=== PATIENT | female | born 1940 | race Caucasian/White ===

== ENCOUNTER 2019-07-08 07:23 | Inpatient (IN) | payer OTHER, MEDICAID ==
[~2019-07-08] VITALS: Ht 170.2 cm; Wt 75.7 kg
[2019-07-08 07:25] VITALS: BP 119/73
[2019-07-08] MEDS ORDERED: ASPIRIN EC81 M1 PO (07:34)
[2019-07-08] MEDS ORDERED: ESTRACE0.5 MG PO (07:34)
[2019-07-08] MEDS ORDERED: CALCIUM500 MG PO (07:35)
[2019-07-08] MEDS ORDERED: SIMVASTATIN80 MG PO (07:35)
[2019-07-08 08:15] LABS: ABSOLUTE BASOPHILS 0.1 thou/uL (0.0-0.2); ABSOLUTE LYMPHOCYTES 2.2 thou/uL (0.8-5.3); ABSOLUTE MONOCYTES 1.6 thou/uL (0.0-1.2); ABSOLUTE NEUTROPHILS 9.2 thou/uL (1.6-8.1); BASOPHILS 0.5 %; EOSINOPHILS 0.2 %; HEMOGLOBIN 15.7 gm/dL (12.0-15.0); LYMPHOCYTES 16.5 %; MCH 30.1 pg (26.0-34.0); MCHC 33.5 g/dL (28.0-37.0); MCV 89.9 fL (80.0-100.0); MONOCYTES 12.4 %; MPV 8.3 fl. (7.2-11.1); NUCLEATED RBCS 0 /100WBC; PLATELET COUNT* 310 thou/uL (150-400); POLYS 70.4 %; RBC 5.23 mil/uL (4.20-5.00); RDW-CV 13.7 % (10.5-14.5); WBC 13.1 thou/uL (4.0-11.0)
[2019-07-08 08:23] LABS: CALCIUM 9.3 mg/dL (8.5-10.1); POTASSIUM 3.3 mmol/L (3.5-5.1)
[2019-07-08 08:25] LABS: APTT 27.3 Seconds (25.0-31.3); INR 1.1; PROTIME 10.9 Seconds (9.20-11.50)
[2019-07-08 08:33] LABS: ALBUMIN 3.7 g/dL (3.4-5.0); MAGNESIUM 1.8 mg/dL (1.8-2.4); TOTAL BILIRUBIN 0.3 mg/dL (<0.1-1.0); TOTAL PROTEIN 7.5 g/dL (6.4-8.2)
[2019-07-08 10:58] VITALS: BP 119/61
[2019-07-08 11:15] VITALS: BP 125/61
[2019-07-08] MEDS ORDERED: LISINOPRIL-HCT1 EAC1 PO (12:43)
--- NOTE | 2019-07-08 15:16 | EKG ---
[place] [address] ELECTROCARDIOGRAM REPORT Name: [place] GUERIN Room: [address] ADM IN [facility].#: [id number] Admission: 07/08/19 Attend Phys: Francois England Discharge: Date of : 44 Report #: [id number] THIS REPORT FOR: //name// [facility] ED Test Date: 2019-07-08 Test Time: 08:32:18 Pat Name: KY GUERIN Department: Room: [facility] Gender: F Thread Trimmer: [facility] : 1940 Requested By: Bora Reyna Order Number: [id number] MD: Myke Reyes Measurements Intervals [place] Rate: 60 P: 51 RI: 134 QRS: 41 QRSD: 86 T: 61 QT: 424 QTc: 424 Interpretive Statements Sinus rhythm Borderline T abnormalities, lateral leads No previous ECG available for comparison Electronically Signed On 07-08-2019 15:15:47 UX DEVELOPER by Myke Reyes [email or web address] <ELECTRONICALLY SIGNED> By: Myke Reyes MD, [facility] 07/08/19 1515 1 1 Myke Reyes MD, FAC /EPI
[2019-07-08 18:42] VITALS: BP 124/69
[2019-07-08 20:00] VITALS: BP 127/62
[2019-07-09] VITALS (7 sets, daily range): BP systolic 107–139; BP diastolic 55–67
[2019-07-09 01:09] LABS: URINE BILIRUBIN NEGATIVE (Negative); URINE BLOOD NEGATIVE (Negative); URINE CLARITY CLEAR; URINE COLOR YELLOW; URINE GLUCOSE-RANDOM NEGATIVE (Negative); URINE KETONES NEGATIVE (Negative); URINE LEUKOCYTES NEGATIVE (Negative); URINE NITRITE NEGATIVE (Negative); URINE PROTEIN NEGATIVE (Negative); URINE UROBILINOGEN 0.2 E.U./dl (0.2-1.0)
[2019-07-10] VITALS: BP 135/70
[2019-07-10 04:00] VITALS: BP 140/64
[2019-07-10 04:57] LABS: HEMATOCRIT 43.8 % (37.0-47.0); HEMOGLOBIN 14.6 gm/dL (12.0-15.0); MCH 30.2 pg (26.0-34.0); MCHC 33.3 g/dL (28.0-37.0); MCV 90.5 fL (80.0-100.0); MPV 8.9 fl. (7.2-11.1); RBC 4.84 mil/uL (4.20-5.00); RDW-CV 13.6 % (10.5-14.5); WBC 13.3 thou/uL (4.0-11.0)
[2019-07-10 05:28] LABS: ALBUMIN 3.2 g/dL (3.4-5.0); CALCIUM 9.4 mg/dL (8.5-10.1); MAGNESIUM 1.9 mg/dL (1.8-2.4); TOTAL BILIRUBIN 0.2 mg/dL (<0.1-1.0); TOTAL PROTEIN 6.6 g/dL (6.4-8.2)
[2019-07-10 07:39] VITALS: BP 138/74
[2019-07-10 12:00] VITALS: BP 122/65
[2019-07-10 16:00] VITALS: BP 131/70
[2019-07-10 20:00] VITALS: BP 125/55
[2019-07-11 00:49] VITALS: BP 123/58
[2019-07-11 04:37] VITALS: BP 132/61
[2019-07-11 08:00] VITALS: BP 137/52
[2019-07-11 11:44] VITALS: BP 116/50
[2019-07-11] MEDS ORDERED: LEVAQUIN 500 M500 M3 PO (13:50)
[2019-07-11] MEDS ORDERED: PREDNISONE 10 M10 MG PO (13:51)
[2019-07-11] MEDS ORDERED: PROAIR HFA8.5 GM INH (13:52)
[2019-07-11] MEDS ORDERED: SYMBICORT80 MCG/4.1 INH (13:53)
[2019-07-11 14:14] VITALS: BP 116/50
[2019-07-11 14:21] VITALS: BP 116/50
== END 2019-07-11 15:42 | disposition home or self-care (01) | DRG 193 ==
LOC: M.ERS 07:23 → M.TBA-ER 09:27 → M.2W 09:27
PROVIDERS: Family Medicine; ADMIT Internal Medicine
DX: J15.9 Unspecified bacterial pneumonia (principal); J96.01 Acute respiratory failure with hypoxia; R65.11 Systemic inflammatory response syndrome (SIRS) of non-infectious origin with acute organ dysfunction; J98.11 Atelectasis; J44.0 Chronic obstructive pulmonary disease with (acute) lower respiratory infection; J44.1 Chronic obstructive pulmonary disease with (acute) exacerbation; I50.32 Chronic diastolic (congestive) heart failure; E78.00 Pure hypercholesterolemia, unspecified; F17.210 Nicotine dependence, cigarettes, uncomplicated; E86.0 Dehydration; I11.0 Hypertensive heart disease with heart failure; Z79.899 Other long term (current) drug therapy; Z88.8 Allergy status to other drugs, medicaments and biological substances; Z79.82 Long term (current) use of aspirin